=== PATIENT | male | born 1990 | race Caucasian/White ===

== ENCOUNTER 2020-06-23 05:07 | Emergency (ER) | payer SELFPAY ==
[2020-06-23 05:13] VITALS: BP 135/100; PULSE 89; RESP 20; TEMP 36.7; O2SAT 98
--- NOTE | 2020-06-23 05:17 | ED.DENTAL ---
HPI - Dental/Oral General Chief complaint: Dental/Oral Stated complaint: tooth ache Time Seen by Provider: 06/23/20 05:17 Source: patient Mode of arrival: ambulatory Limitations: no limitations History of Present Illness HPI Narrative: 30-year-old man comes in today complaining of pain in his left upper teeth has been present for last 3 days. Patient states these teeth have never bothered him before. He has some dental issues in the past. He has had no fever, difficulty swallowing, difficulty breathing. He states that began having some swelling in his left cheek. Is unable to sleep due to the pain. He states he took some leftover penicillin this morning. MD Complaint: tooth pain Onset (ago): day(s) (3) Duration: constant Severity: severe Relieving factors: nothing Context: history of dental caries Associated symptoms: gum swelling Treatment prior to arrival: oral analgesic Related Data Allergies Allergy/AdvReac Type Severity Reaction Status Date / Time No Known Allergies Allergy Unverified 05/26/13 15:03 Review of Systems Review of Systems: All systems reviewed & are unremarkable except as noted in HPI and below Constitutional: Constitutional: Denies chills and Denies fever(s) Eyes: Eyes: Denies change in vision and Denies photophobia ENT: Denies nasal congestion and Denies sore throat Cardiovascular: Cardiovascular: Denies chest pain and Denies radiating jaw, neck or arm pain Respiratory: Respiratory: Denies cough and Denies dyspnea Gastrointestinal: Gastrointestinal: Denies nausea and Denies vomiting Musculoskeletal: Musculoskeletal: Denies arthralgias and Denies joint swelling Integumentary/Breasts: Skin/Breast: Denies pruritus, Denies erythema and Denies rash Allergic/Immunologic: Allergic/Immunologic: Reports lip swelling, Denies throat swelling and Denies tongue swelling [facility] Family History Family History (Updated 01/16/15 @ 09:07 by DOCTOR UNKNOWN) Mother Hypertension Other Family history of congestive heart failure Social History Social History Smoking status: Heavy tobacco smoker Alcohol intake: current Exam Const: General: healthy appearing and alert Limitations: no limitations Other: Moderate acute distress. HENMT: Head: normal to inspection Ears: external ears normal, TM's normal bilaterally and EAC's normal General nose exam: Normal nares present Mouth: Yes moist mucous membranes Throat: posterior oropharynx normal Other: Modest swelling left cheek without overlying erythema or induration. Dental decay ands gingivall swelling at the left upper teeth without swelling of the roof of his mouth. Eyes: Conjunctivae: conjunctivae normal Pupils: Equal, round and reactive pupils present EOM: EOMs intact bilaterally Resp: Effort & Inspection: normal respiratory effort and not labored Auscultation: clear to auscultation bilaterally, no rales, no rhonchi and no wheezes Cardio: Rate: regular rate Rhythm: regular rhythm Heart sounds: no murmurs Skin: General skin exam: normal color, no jaundice and no pallor Rashes: no rashes Neuro: General: patient oriented x3, moves all extremities, no focal motor deficits and CN's II-XI intact bilaterally Speech: normal speech Gait exam (Neuro): Normal gait present Extrem: General: normal to inspection and no clubbing, cyanosis or edema Psych: Appearance: grossly normal and well kempt Mental Status: mental status grossly normal Affect: Anxious affect present Attitude: cooperative Thought content: Yes Normal thought content present Discharge Plan Discharge Clinical Impression: Dental abscess Patient Disposition: Home, Self-Care Condition: Stable Instructions: Antibiotic Form, Dental Abscess (ED) Additional Instructions: Follow-up with a dentist next week. If you are unable to swallow fluids, have trouble breathing, or if new concerning symptoms, return to the emergency department. Prescriptions: New
[2020-06-23] MEDS: CLINDAMYCIN HCL 150 MG CAP 300 MG PO (05:27)
[2020-06-23 05:30] VITALS: BP 132/92; PULSE 100; RESP 18; TEMP 36.8; O2SAT 100
== END 2020-06-23 05:36 | disposition home or self-care (01) ==
PROVIDERS: Emergency Provider Emergency Medicine
DX: K04.7 Periapical abscess without sinus (principal)
CPT/HCPCS: 99283; A9270

== ENCOUNTER 2020-10-07 11:11 | Emergency (ER) | payer SELFPAY ==
[2020-10-07 11:15] VITALS: BP 129/94; PULSE 112; RESP 26; TEMP 36.4; O2SAT 98
--- NOTE | 2020-10-07 11:32 | ECG_ITS ---
Measurements Intervals [place] Rate: 94 P: 47 [place]: 137 QRS: 0 QRSD: 121 T: 8 QT: 338 QTc: 425 Interpretive Statements SINUS RHYTHM POSSIBLE LEFT VENTRICULAR HYPERTROPHY BASELINE ARTIFACT- I, II, AVR, AVL, AVF BORDERLINE ECG Electronically Signed On 10-08-2020 12:27:28 CDT by Juan Alberto Avalos D.O.
[2020-10-07] MEDS: ASPIRIN 325 MG ENTERIC TABLET PO (11:55)
[2020-10-07] MEDS: SODIUM CHLORIDE 0.9% IV 1,000 ML 999 ML IV CONT (11:55)
[2020-10-07 12:00] LABS: Base Excess ABG 1.5 mmol/L (0-2); HCO3 ABG 25.5 mmol/L (23-29); Oxygen Content ABG 21.5 %vol (16.0-22.0); Oxygen Saturation ABG 97.4 % (95-97); Oxyhemoglobin 90.2 % (94-100); PCO2 ABG 38.6 mmHg (35-45); PO2 ABG 94.5 mmHg (80-90); Total Hemoglobin 16.9 g/dL (12.0-18.0); pH ABG 7.44 (7.35-7.45)
[2020-10-07 12:02] LABS: Basophils Absolute Auto 0.05 K/mm3 (0.00-0.10); Basophils Percent Auto 0.5 % (0.0-1.0); Eosinophils Absolute Auto 0.03 K/mm3 (0.02-0.50); Eosinophils Percent Auto 0.3 % (1.0-6.0); Hematocrit 47.7 % (40.0-54.0); Hemoglobin 16.1 g/dL (14.0-18.0); Immature Granulocyte Absolute 0.02 K/mm3 (0.00-0.00); Immature Granulocyte Percent A 0.2 % (0.0-0.0); Lymphocytes Absolute Auto 1.79 K/mm3 (1.10-4.50); Lymphocytes Percent Auto 16.8 % (18.0-42.0); Mean Corpuscular HGB Conc 33.8 g/dL (32.0-36.0); Mean Corpuscular Hemoglobin 30.7 pg (27.0-31.0); Mean Corpuscular Volume 90.9 fL (78.0-102.0); Mean Platelet Volume 10.2 fl (8.7-11.0); Monocytes Absolute Auto 0.58 K/mm3 (0.10-0.90); Monocytes Percent Auto 5.4 % (2.0-11.0); Neutrophils Absolute Auto 8.2 K/mm3 (1.7-7.2); Neutrophils Percent Auto 76.8 % (50.0-70.0); Platelet Count Result 257 K/mm3 (150-420); Red Blood Count 5.25 M/mm3 (4.70-6.10); Red Cell Distribution Width 12.3 % (11.6-14.4); White Blood Count 10.7 K/mm3 (4.8-10.8)
[2020-10-07 12:03] LABS: Device ROOM AIR; Modified Allen's Test Pass; Site Drawn LEFT RADIAL
--- NOTE | 2020-10-07 12:28 | ED.ARRPALP ---
HPI - Arrhythmia/Palpitations General Chief Complaint: Arrhythmia/Palpitations Stated Complaint: sob chest pain Time Seen by Provider: 10/07/20 11:17 Source: patient and RN notes reviewed Mode of arrival: ambulatory Limitations: no limitations History of Present Illness complaint: rapid heart beat and palpitations Onset (ago): hour(s) (6) Duration: constant Severity: moderate Context: occurred during exertion Associated symptoms: chest pain and anxiety Related Data Home Medications Medication Instructions Recorded Confirmed No Home Medications 10/07/20 10/07/20 Allergies Allergy/AdvReac Type Severity Reaction Status Date / Time No Known Allergies Allergy Unverified 05/26/13 15:03 Review of Systems Review of Systems: All systems reviewed & are unremarkable except as noted in HPI and below Constitutional: Constitutional: Reports as per HPI and Reports no additional constitutional complaints Eyes: Eyes: Reports as per HPI and Reports no additional eye complaints ENT: Reports system reviewed and no additional complaints, except as documented and Reports as per HPI Cardiovascular: Cardiovascular: Reports as per HPI and Reports no additional cardiovascular complaints Respiratory: Respiratory: Reports as per HPI and Reports no additional respiratory complaints Gastrointestinal: Gastrointestinal: Reports as per HPI and Reports no additional gastrointestinal complaints Genitourinary: Genitourinary: Reports no additional male genitourinary complaints and Reports as per HPI Musculoskeletal: Musculoskeletal: Reports no additional musculoskeletal complaints and Reports as per HPI Integumentary/Breasts: Skin/Breast: Reports system reviewed and no additional complaints, except as docu and Reports as per HPI Neurologic: Reports system reviewed and no additional complaints, except as documented and Reports as per HPI Psychiatric: Psychiatric: Reports no additional psychiatric complaints and Reports as per HPI Endocrine: Endocrine: Reports no additional endocrine complaints and Reports as per HPI Hematologic/Lymphatic: Hematologic/Lymphatic: Reports no additional hematologic/lymphatic complaints and Reports as per HPI Allergic/Immunologic: Allergic/Immunologic: Reports no additional allergic/immunologic complaints [facility] Past Medical History Medical History Panic attacks Family History Family History Mother Hypertension Other Family history of congestive heart failure Social History Social History Smoking status: Heavy tobacco smoker Alcohol intake: current Exam Const: General: no acute distress and alert Nutritional Appearance: well nourished Orientation/consciousness: patient oriented x3 HENMT: Head: normal to inspection Ears: external ears normal and TM's normal bilaterally General nose exam: Normal external nose present and Normal nares present Mouth: Yes moist mucous membranes Eyes: Conjunctivae: conjunctivae normal Pupils: Equal, round and reactive pupils present EOM: EOMs intact bilaterally Neck: Neck: normal visual inspection and no lymphadenopathy Chest: Chest palpation & inspection: normal inspection of the chest Resp: Effort & Inspection: normal respiratory effort Auscultation: clear to auscultation bilaterally Cardio: Rate: tachycardic GI: GI Palp: Yes Soft to palpation Percussion: Yes normal to percussion Auscultation: normal bowel sounds : General: Yes no CVA tenderness Male General Exam: Yes normal external exam Testes: Testes normal Back/Spine/Pelvis: Back: no CVA tenderness Skin: General skin exam: normal color Neuro: General: patient oriented x3, moves all extremities, no focal motor deficits and CN's II-XI intact bilaterally Extrem: General: normal to inspection and no pedal edema Psych:
[2020-10-07 12:40] VITALS: BP 129/76; PULSE 88; RESP 16; O2SAT 98
[2020-10-07 12:48] LABS: Add Urine Microscopic? YES; Appearance Urine Clear (Clear); Bilirubin Urine Negative (Negative); Blood Urine Negative (Negative); Color Urine Yellow (Yellow); Glucose Urine UA Negative (Negative); Ketones Urine Negative (Negative); Leukocyte Esterase Ur Negative (Negative); Nitrate Urine Negative (Negative); Protein Urine 1+ (Negative); Urobilinogen Urine 0.2 mg/dL (0.2-1.0); pH Urine 7.5 (5.0-8.0)
[2020-10-07 12:58] LABS: RBC Urine 0-2 /hpf (0-2); WBC Urine 0-3 /hpf (0-3)
[2020-10-07 12:59] LABS: Bacteria Urine Trace /hpf; Mucus Urine Few /lpf; Squamous Epithelial Cell Urine None seen /hpf (Few)
[2020-10-07 14:39] LABS: Lactic Acid Reflex 0.8 mmol/L (0.4-2.0)
[2020-10-07 14:40] LABS: Anion Gap 7 mmol/L (8-16); Aspartate Amino Transferase 76 U/L (15-37); Bilirubin,Total 0.9 mg/dL (0.00-1.00); Blood Urea Nitrogen 17 mg/dL (7-18); Calcium 9.6 mg/dL (8.5-10.1); Carbon Dioxide 23 mmol/L (21-32); Chloride 109 mmol/L (98-108); Estimated Glomerular Filt Rate > 60; Glucose 98 mg/dL (70-99); Osmolality Calculated 289 mOsm/kg (285-295); Potassium 4.2 mmol/L (3.5-5.1); Sodium 139 mmol/L (136-145)
[2020-10-07 14:41] LABS: Alanine Aminotransferase 35 U/L (16-63); Total Protein 8.2 g/dL (6.4-8.2)
[2020-10-07 14:42] LABS: Albumin Level 4.9 g/dL (3.4-5.0)
[2020-10-07 14:44] LABS: Alkaline Phosphatase 74 U/L (46-116)
[2020-10-07 14:59] LABS: Ethanol < 3 mg/dL (0-6)
[2020-10-07 15:00] LABS: Amphetamine Screen Urine Negative (Negative); Barbiturate Screen Urine Negative (Negative)
[2020-10-07 15:00] LABS: Troponin I < 12.0 ng/L (0.00-60.4)
[2020-10-07 15:01] LABS: Benzodiazepines Screen Urine Positive (Negative); Cannabinoid Screen Urine Positive (Negative); Cocaine Screen Urine Negative (Negative); Methadone Screen Urine Negative (Negative); Opiate Screen Urine Negative (Negative); Phencyclidine Screen Urine Negative (Negative)
== END 2020-10-07 12:40 | disposition home or self-care (01) ==
PROVIDERS: Emergency Provider Emergency Medicine
DX: R00.2 Palpitations (principal); R07.9 Chest pain, unspecified
CPT/HCPCS: 36415; 36600; 80053; 80307; 81001; 82805; 83605; 84484; 85025; 93005; 96360; 99283; 99284; A9270; J7030

== ENCOUNTER 2024-03-28 13:06 | Emergency (ER) | payer SELFPAY ==
--- NOTE | ~2024-03-28 | XR_ITS ---
HISTORY: pain in back COMPARISON: None TECHNIQUE: 2 views of the thoracic spine were obtained. FINDINGS: No acute compression fracture is present. Bone mineralization is age-appropriate. No significant degenerative disease. IMPRESSION: Unremarkable radiographic evaluation of the thoracic spine, as detailed above. Reviewed, dictated and finalized at location A. MACHINE OPERATOR
--- NOTE | ~2024-03-28 | XR_ITS ---
EXAMINATION: XR lumbar spine 2-3V DATE: 03/28/2024 14:49 INDICATION: Chronic low back pain. TECHNIQUE: 3 views of lumbar spine were obtained. COMPARISON: Lumbar spine radiographs 01/16/2015 FINDINGS: Alignment is normal. Vertebral body heights are normal. There is mildly decreased disc heig ht at L5-S1. There is multilevel mild facet joint osteoarthrosis. IMPRESSION: 1. Mild lumbar spondylosis. Reviewed, dictated and finalized at location A. ERCIAL TECHNICIAN IMPRESSION: 1. Mild lumbar spondylosis.
--- NOTE | ~2024-03-28 | XR_ITS ---
Clinical Indication: Cough PA and lateral views of the chest: Comparison: None Findings: The lungs are clear, without evidence of focal consolidation or pleural effusion. Cardiome diastinal silhouette is within normal limits. Bones and soft tissues are unremarkable. Impression: Normal chest. Reviewed, dictated and finalized at [facility]. Impression: Normal chest.
[2024-03-28 13:20] VITALS: BP 157/107; PULSE 105; RESP 16; TEMP 37.3; O2SAT 100
--- OUTSIDE RECORDS SUMMARY | 2024-03-28 13:48 | XMS_ITS | Encounter Summary ---
Author Organization [facility] Address 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 [facility] ? [address] ?[place] ??[id number] ?Admit Date: 10/27/2007 ?KURT, DIONISIO W ?Sex: M ?Admit Prov: SHAHRAM THURSTON ? Date: 1990 ?Primary Care Prov: SHAHRAM THURSTON ?CMRN: [id number] ?Room: [facility] ? SSN: [id number] ? IMAGING SERVICES ?Ordering Prov: N/A ? Accession Number: [id number] ?Interpretation ? EXAMINATION: LUMBAR SPINE, 3 VIEWS, 10/27/07 ? Clinical History: Back pain. ? Findings: Examination of the lumbar spine demonstrates mild left convex ? lateral curvature. There is no evidence of fracture, dislocation or ? subluxation. Disc spaces are preserved. ? Impression: ? No distinct fracture. ? . ? Dictated by: ??Yulia SCHMITZ ? 10/27/2007 13:12 ? Electronically signed by: ??Yulia SCHMITZ ? 10/27/2007 13:36 ? Transcribed: ??10/27/2007 13:15 ?LE Procedure Note Naveen Schmitz MD - 10/27/2007 [facility] [address] [place], [place] [address] Admit Date: 10/27/2007 KURT DIONISIO W Sex: M Admit Prov: SHAHRAM THURSTON Date: 1990 Primary Care Prov: SHAHRAM THURSTON CMRN: [id number] Room: [facility] SSN: [id number] IMAGING SERVICES Ordering Prov: N/A Interpretation EXAMINATION: LUMBAR SPINE, 3 VIEWS, 10/27/07 Clinical History: Back pain. Findings: Examination of the lumbar spine demonstrates mild leftconvex lateral curvature. There is no evidence of fracture, dislocation or subluxation. Disc spaces are preserved. Impression: No distinct fracture. . Dictated by: Yulia SCHMITZ 10/27/2007 13:12 Electronically signed by: Yulia SCHMITZ 10/27/2007 13:36 Transcribed: 10/27/2007 13:15 LE Shahram Thurston MD DIAGNOSTIC IMAGING ORDERABLES Fi nal Result documented in this encounter Visit Diagnoses Diagnosis Backache, unspecified documented in this encounter Care Teams Vermin Exterminator Relationship Specialty Start Date End Date Shahram Thurston MD [address] [place] [phone] PCP - General 10/27/07 01/10/14 documented as of this encounter
--- OUTSIDE RECORDS SUMMARY | 2024-03-28 13:48 | XMS_ITS | Encounter Summary ---
Author Organization [facility] Address 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
--- OUTSIDE RECORDS SUMMARY | 2024-03-28 13:48 | XMS_ITS | Encounter Summary ---
Author Organization [facility] Address 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
--- OUTSIDE RECORDS SUMMARY | 2024-03-28 13:48 | XMS_ITS | Encounter Summary ---
Author Organization [facility] Address 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
--- OUTSIDE RECORDS SUMMARY | 2024-03-28 13:49 | XMS_ITS | Encounter Summary ---
Author Organization [facility] Address 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
--- OUTSIDE RECORDS SUMMARY | 2024-03-28 13:49 | XMS_ITS | Encounter Summary ---
Author Organization [facility] Address 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
--- OUTSIDE RECORDS SUMMARY | 2024-03-28 13:49 | XMS_ITS | Encounter Summary ---
Author Organization [facility] Address 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
--- OUTSIDE RECORDS SUMMARY | 2024-03-28 13:49 | XMS_ITS | Clinical Summary ---
Author Organization [facility] Address [address] [place] [address] Phone Care Team Providers Care Ecommerce Project Manager Name Role Phone Unavailable Primary Care Provider Unavailabl e Allergies No known active allergies Immunizations Immunization Administration Dates Next Due (INFANRIX)(6 WKS-6 YRS) DIPT HERIA, TETANUS TOXOIDS, AND ACCELLULAR PERTUSSIS VACCINE (DTAP), 0.5 ML IM 09/17/1993,03/21/1992,1991,08/15 (M-M-R II/PRIORIX)(12 MO UP) MEASLES, MUMPS AND RUBELLA VIRUS VACCINE, 0.5 ML IM/SUBCUT 09/17/1993 HIB, Unspecified Formulation 09/17/1993, 03/21/1992,1991,08/15 Meningococcal ACWY Vaccine, Unspecified Formulation 10/27/2007 Poliovirus Vaccine Live Oral 09/17/1993,11/22/18 92,1991 Family History Medical History Relation Name Comments Healthy Father Healthy Maternal Grandfather Hypertension Mother Healthy Sister Relation Name Status Comments Father Alive Maternal Grandfather Alive Maternal Grandmother Mother Alive Paternal Grandfather Paternal Grandmother Sister Alive Social History Tobacco Use Types Packs/Day Years Used Date Smoking Tobacco: Never Assessed Sex and Gender Information Value Date Recorded Sex Assigned at Not on file 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 Gender Identity Not on file Sexual Orientation Not on file Last Filed Vital Signs Vital Sign Reading Time Taken Comments Blood Pressure 112/62 10/27/2007 1:08 PM CDT Pulse 82 10/27/2007 1:08 PM CDT Temperature - - Respiratory Rate - - Oxygen Saturation - - Inhaled Oxygen Concentration - - Weight 68.9 kg (152 lb) 10/27/2007 1:08 PM CDT Height 168.9 cm (5' 6.5 ) 10/27/2007 1:08 PM CDT Body Mass Index 24.17 10/27/2007 1:08 PM CDT Plan of Treatment Health Maintenance Due Date Last Done Comments DTAP/TDAP/TD VACCINES (5 - Tdap) 06/06/2002 09/17/1993, 03/21/1992, 1991, Additional history exists HEPATITIS B VACCINES (1 of 3 - 19+ 3-dose series) 06/06/2010 INFLUENZA VACCINE (#1) 2023 HPV VACCINES Aged Out No longer eligi ble based on patient's age to complete this topic PNEUMOCOCCAL VACCINE 0-64 YEARS Aged Out No longer eligible based on patient's age to complete this topic
--- NOTE | 2024-03-28 14:13 | ED_ITS ---
HPI - General Adult General Chief complaint: Back Pain/Injury Stated complaint: Back Pain Time Seen by Provider: 03/28/24 13:50 Source: patient, family, RN notes reviewed and old records reviewed Mode of arrival: ambulatory Limitations: no limitations History of Present Illness HPI narrative: 33 year old male presents to [facility] care with complaints of having coughing spell last night and now when he breaths in he has pain to the thoracic back area and to lateral rib area. Patient states that cough has been going on for a couple of days, Patient denies any injury or recently lifting anything heavy. Patient reports that he does have chronic lower back pain that he normally has to take Ibuprofen daily to make it through the work day. He reports no known fevers chills or sweats denies any sore throat, ear pain or any sinus congestion. MD complaint: thoracic back pain and pain to ribs after coughing spell. Onset (ago): day(s) (cough 2 days increased pain since coughing fit last night) Location: chest (lateral chest,) and back (thoracic back with reports of chronic low back pain) Severity scale (1-10): 9 Quality: burning and aching Pain Consistency: constant Exacerbating factors: movement and other (coughing) Treatments prior to arrival: NSAID Related Data Allergies Allergy/AdvReac Type Severity Reaction Status Date / Time No Known Allergies Allergy Unverified 03/28/24 13:22 Review of Systems Review of Systems: CONSTITUTIONAL: Denies fever, chills, or sweats. EYES: Denies visual changes, redness, or discharge. ENT: Denies rhinorrhea, congestion, sore throat, or otalgia. CARDIOVASCULAR: Denies chest pain, palpitations, or edema. RESPIRATORY: Denies cough or dyspnea. GASTROINTESTINAL: Denies abdominal pain, nausea, vomiting, or diarrhea. GENITOURINARY: Denies dysuria or hematuria. SKIN: Denies rash or itching. MUSCULOSKELETAL:report chronic lumbar back pain, reports new thoracic back pain, pain lateral chest area, or myalgia. NEUROLOGIC: Denies headache, numbness, or weakness. PSYCHIATRIC: Reports history of anxiety or depression. All systems reviewed & are unremarkable except as noted in HPI and below PMFSH Past Medical History Medical History (Updated 03/29/24 @ 20:02 by Iris Moore NP) Facial cellulitis Bronchitis Chronic low back pain Panic attacks Family History Family History Mother Hypertension Other Family history of congestive heart failure Social History Social History (Updated 03/29/24 @ 19:47 by Iris Moore NP) Smoking packs per day: 0.5 Smoking cigarettes per day: 10.0 Smoking status: Current every day smoker Tobacco type: cigarettes and e-cigarettes/vaping Alcohol intake: current Substance use: current Substance use type: marijuana Living arrangements: with family Gender identity (if verbalized by the patient): Male Comments At time of signature, agree with nursing past medical, surgical, social and family history. There is no relevant family history pertinent to the presenting complaint Exam Narrative: GENERAL: Well-appearing, well-nourished, and in some acute distress. HEAD: Normocephalic, atraumatic. EYES: PERRLA and EOMI. ENT: Nares clear, no rhinorrhea or epistaxis. Mucous membranes moist.TM's normal throat pink with no redness or swelling NECK: Supple. no lymphadenopathy CHEST: Clear to auscultation. No respiratory distress. dry cough noted SAO2 100% on room air, voices pain to bilateral lateral aspects of chest HEART: Regular rate and rhythm. No murmur heard. Normal peripheral pulses. ABDOMEN: Soft, nontender, nondistended, normal active bowel sounds. EXTREMITIES: Normal range of motion. No edema. chronic low back pain and pain to thoracic back reported also, no midline spinal tenderness noted on palpation to thoracic spine area reports bilateral sides of thoracic back. Denies any difficulty with bowels or bladder function, denies any saddle paraesthesia. Pain with ambulation voiced and movement. Patient reports no radiation of pain to extremities. SKIN: Warm, dry, no rash. NEURO: No focal deficits. Alert and oriented x3. Course Course Emergency Course: Patient is aware of diagnosis, understands and agrees to treatment plan.? Anticipatory guidance given.? Patient agrees to follow-up as directed and is aware of reasons to seek care at the emergency department. Portions of this record may have been created with voice recognition software Level of Care: Express Care Visit Vital Signs Vital signs: Vital Signs Temperature 37.3 C 03/28/24 13:20 Pulse Rate 105 H 03/28/24 13:20 Respiratory Rate 16 03/28/24 13:20 Blood Pressure 157/107 H 03/28/24 13:20 Pulse Oximetry 100 03/28/24 13:20 Oxygen Delivery Room Air 03/28/24 13:20 Temperature 37.3 C 03/28/24 13:20 Pulse Rate 105 H 03/28/24 13:20 Respiratory Rate 16 03/28/24 13:20 Blood Pressure 157/107 H 03/28/24 13:20 Pulse Oximetry 100 03/28/24 13:20 Oxygen Delivery Room Air 03/28/24 13:20 Reviewed Medical Decision Making MDM Narrative Medical decision making narrative: Exam findings and imaging show no acute concerns or changes; patient is non- toxic appearing and is in no distress.? Patient is appropriate for outpatient treatment and follow-up Differential Diagnosis Differential Diagnosis: pain to lateral chest bilaterally, thoracic back pain, chronic low back pain, acute cough, Medical Records Medical records reviewed: Yes I reviewed the external patient's medical records. Vital Signs Vital Signs: Vital Signs Temperature 37.3 C 03/28/24 13:20 Pulse Rate 105 H 03/28/24 13:20 Respiratory Rate 16 03/28/24 13:20 Blood Pressure 157/107 H 03/28/24 13:20 Pulse Oximetry 100 03/28/24 13:20 Oxygen Delivery Room Air 03/28/24 13:20 Temperature 37.3 C 03/28/24 13:20 Pulse Rate 105 H 03/28/24 13:20 Respiratory Rate 16 03/28/24 13:20 Blood Pressure 157/107 H 03/28/24 13:20 Pulse Oximetry 100 03/28/24 13:20 Oxygen Delivery Room Air 03/28/24 13:20 reviewed Imaging Data Attestation: I personally reviewed and interpreted this imaging study as follows: My impression: Normal chest x-ray no consolidation or pleural effusion Thoracic spine normal with no degenerative disease Lumbar spine mild lumbar spondylosis, multilevel facet joint osteoarthrosis, mildly decreased disc height L5-S1 Radiologist's impression: [facility] [place] [address] XRay Report Signed Patient: Dionisio Stroud : 1990 MR#: [id number] Age: 33 Acct:[id number] Loc: [facility] ADM Date: 03/28/24Attending Dr: Ordering Physician: Iris Moore APRN Date of Service: 03/28/24 Procedure(s): XR chest 2V Accession Number(s): [id number] cc: OPERATOR ASSISTANT I CEMENTING PHYSICIAN; Iris Moore APRN~ Clinical Indication: Cough PA and lateral views of the chest: Comparison: None Findings: The lungs are clear, without evidence of focal consolidation or pleural effusion. Cardiomediastinal silhouette is within normal limits. Bones and soft tissues are unremarkable. Impression: Normal chest. Reviewed, dictated and finalized at location . RGROUND HEAVY EQUIPMENT OPERATOR Please be advised this is a medical document. It is intended for [id number] communication. It is written in medical language and may contain unfamiliar abbreviations or verbiage. Medical documents are intended to carry relevant information, facts as evident, and the clinical opinion of the practitioner at the time of the encounter. This report may have been done utilizing a voice recognition system. Attempts have been made to correct errors. However, there may be uncorrected grammatical, spelling, and recognition errors present. The file time of this note does not necessarily represent the time of service. Dictated By: Melecio Mauricio MD 03/28/24 1338 Signed By: <Electronically signed by Melecio Mauricio MD in OV> [place] [address] XRay Report Signed Patient: Dionisio Stroud : 1990 MR#: [id number] Age: 33 Acct:[id number] Loc: [facility] ADM Date: 03/28/24Attending Dr: Ordering Physician: Iris Moore APRN Date of Service: 03/28/24 Procedure(s): XR thoracic spine 3V Accession Number(s): [id number] cc: OPERATOR ASSISTANT I CEMENTING PHYSICIAN; Iris Moore APRN~ HISTORY: pain in back COMPARISON: None TECHNIQUE: 2 views of the thoracic spine were obtained. FINDINGS: No acute compression fracture is present. Bone mineralization is age-appropriate. No significant degenerative disease. IMPRESSION: Unremarkable radiographic evaluation of the thoracic spine, as detailed above. Reviewed, dictated and finalized at location A. RGROUND HEAVY EQUIPMENT OPERATOR Please be advised this is a medical document. It is intended for [id number] communication. It is written in medical language and may contain unfamiliar abbreviations or verbiage. Medical documents are intended to carry relevant information, facts as evident, and the clinical opinion of the practitioner at the time of the encounter. This report may have been done utilizing a voice recognition system. Attempts have been made to correct errors. However, there may be uncorrected grammatical, spelling, and recognition errors present. The file time of this note does not necessarily represent the time of service. Dictated By: Stephanie Estrella MD 03/28/24 1458 Signed By: <Electronically signed by Stephanie Estrella MD in OV> [place] [address] XRay Report Signed Patient: Dionisio Stroud : 1990 MR#: [id number] Age: 33 Acct:[id number] Loc: [facility] ADM Date: 03/28/24Attending Dr: Ordering Physician: Iris Moore APRN Date of Service: 03/28/24 Procedure(s): XR lumbar spine 2-3V Accession Number(s): [id number] cc: OPERATOR ASSISTANT I CEMENTING PHYSICIAN; Iris Moore APRN~ EXAMINATION: XR lumbar spine 2-3V DATE: 03/28/2024 14:49 INDICATION: Chronic low back pain. TECHNIQUE: 3 views of lumbar spine were obtained. COMPARISON: Lumbar spine radiographs 01/16/2015 FINDINGS: Alignment is normal. Vertebral body heights are normal. There is mildly decreased disc height at L5-S1. There is multilevel mild facet joint osteoarthrosis. IMPRESSION: 1. Mild lumbar spondylosis. Reviewed, dictated and finalized at location A. RGROUND HEAVY EQUIPMENT OPERATOR Please be advised this is a medical document. It is intended for jzts-ng-xjzy communication. It is written in medical language and may contain unfamiliar abbreviations or verbiage. Medical documents are intended to carry relevant information, facts as evident, and the clinical opinion of the practitioner at the time of the encounter. This report may have been done utilizing a voice recognition system. Attempts have been made to correct errors. However, there may be uncorrected grammatical, spelling, and recognition errors present. The file time of this note does not necessarily represent the time of service. Dictated By: Kevin Uriosetgui MD 03/28/24 1504 Signed By: <Electronically signed by Kevin Uriostegui MD in [place]> Critical Care Time Critical Care Time Critical Care Time: No Discharge Plan Discharge Clinical Impression: Strain of muscle at thorax level, Lumbar back pain Cough Qualifiers: Cough type: acute Qualified Code(s): R05.1 - Acute cough Patient Disposition: Home, Self-Care Condition: Stable Instructions: Back Pain (ED), Acute Cough (ED) Additional Instructions: Ice and heat to the area for 20-30 minutes Gentle stretching exercises Gentle massage Caution with lifting, bending, stooping, twisting Avoid pushing, pulling take muscle relaxants as directed--caution drowsiness and no driving or alcohol take only at bedtime Anti-inflammatory medicine as directed--take with food such as ibuprofen 600 mg 3 times daily with food for the next 3 days then as needed He may take the muscle relaxant and anti-inflammatory at the same time Delsym cough syrup for cough, Zyrtec Claritin or Ann daily Follow-up with your PCP if not improving in 5-7 days If your symptoms persist, change or worsen significantly before you can contact your personal physician then please, without delay, go to the emergency department for further evaluation. Follow-up with PCP in 7-10 days or sooner if needed Follow up with PCP soon in regards to your blood pressure which is elevated above threshold for referral. Blood pressure above 120/80 may indicate pre- hypertension. Blood 157/107 Patient Language: Gabonese Prescriptions: New cyclobenzaprine 10 mg tablet 10 mg PO HS Qty: 14 0RF Rx Instructions: No driving or operating machinery in absolutely no alcohol while taking this since prednisone 20 mg tablet 20 mg PO BID Qty: 10 0RF Follow-up/Referrals: PHYSICIAN,OPERATOR ASSISTANT I CEMENTING [Primary Care Provider] - Stand Alone Forms: Work/School Release IP Time of Disposition: 15:32 Quality [place] Coma Scale Eyes: Open Verbal: Oriented and Alert Motor: Follows Commands Rayna Coma Total Score: 15
== END 2024-03-28 15:41 | disposition home or self-care (01) ==
PROVIDERS: Emergency Provider Registered Nurse
DX: S29.012A Strain of muscle and tendon of back wall of thorax, initial encounter (principal); X58.XXXA Exposure to other specified factors, initial encounter; M54.50 Low back pain, unspecified; R05.1 Acute cough; M47.816 Spondylosis without myelopathy or radiculopathy, lumbar region; F17.210 Nicotine dependence, cigarettes, uncomplicated; F17.290 Nicotine dependence, other tobacco product, uncomplicated; F12.90 Cannabis use, unspecified, uncomplicated
CPT/HCPCS: 71046; 72072; 72100; 99214; G0463